=== PATIENT | male | born 1955 | race Hispanic/Latino ===

== ENCOUNTER → 2022-05-16 | Outpatient (CLI) | payer MEDICARE, OTHER ==
[~2022-05-16] MED LIST: CITRACAL PO; FLAX100015 PO; LISI10TA24 PO; MULTIVITAMIN PO; PHEN30SP5; RANI150C4 PO; SIME80TA12 PO
[2022-05-16 14:47] LABS: CREATININE 0.7 mg/dL (0.5-1.5); POTASSIUM 4.6 mmol/L (3.5-5.1)
== END | disposition home or self-care (01) ==
LOC: RAH 11:38
PROVIDERS: ATTEND Urology Pediatric Urology
DX: C61 Malignant neoplasm of prostate (principal)
CPT/HCPCS: 78306; 80048; 36415; A9503

== ENCOUNTER → 2022-05-21 | Outpatient (CLI) | payer MEDICARE ==
[~2022-05-21] MED LIST changes: +IOHEXOL 350 MG/ML 100ML INFUS..BTL IV ONE
== END | disposition home or self-care (01) ==
LOC: RAH 10:14
PROVIDERS: ATTEND Urology Pediatric Urology
DX: C61 Malignant neoplasm of prostate (principal)
CPT/HCPCS: 74178; Q9967